=== PATIENT | female | born 1940 | race Caucasian/White ===

== ENCOUNTER 2020-02-08 16:55 | Emergency (ER) | payer MEDICARE, OTHER, SELFPAY ==
[2020-02-08 16:56] VITALS: BP 182/106; PULSE 101; RESP 16; TEMP 37.1; O2SAT 95; BMI 24.3
--- NOTE | 2020-02-08 17:26 | ED_ITS ---
HPI - Fall General: Chief Complaint: Fall Stated Complaint: fall Time Seen by Provider: 02/08/20 17:25 Source: patient Mode of arrival: ambulatory Limitations: no limitations History of Present Illness: HPI Narrative: 79-year-old female comes in today for injury secondary to losing her balance and landing on her left side. Patient states that she went to get up from the flower bed and as she was getting up she lost her balance and fell to the left side catching herself with outstretched arm. 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 Patient has swelling to the left wrist area. Patient has good range of motion of the elbow and shoulder but reports pain and discomfort with it. Patient appears well. Patient appears and mild pain. Review of Systems General: Reports: 10 or more systems reviewed and unremarkable except in HPI and below Musc: Reports: joint pain (left shoulder, wrist, elbow) Physical Exam Const: COMMON NORMALS: no acute distress and patient oriented x3 GENERAL APPEARANCE: cooperative HENMT: COMMON NORMALS: normocephalic and Normal external nose present HEAD & SCALP: normal to inspection and normocephalic NOSE: Normal external nose present Eye: GENERAL EYE: appearance normal, both eyes and all related structures Neck/C-Spine: COMMON NORMALS: full ROM Chest: COMMONS NORMALS: normal inspection of the chest Resp: COMMON NORMALS: normal respiratory effort EFFORT & INSPECTION: Yes able to speak in complete sentences Cardio: COMMON NORMALS: regular rate and regular rhythm RATE: regular rate RHYTHM: regular rhythm GI: COMMON NORMALS: non-tender Back/Pelvis: COMMON NORMALS: thoracic and lumbar spine normal to inspection (Patient presently is in a spinal brace.) Extremity: NARRATIVE EXTREMITY EXAM: Tenderness and swelling is noted to the left wrist. Prompt capillary refill is noted distally. Patient has some tenderness to the left elbow and left anterior shoulder. No obvious deformity or dislocation is noted to the shoulder or elbow. Neuro: COMMON NORMALS: patient oriented x3 and moves all extremities Psych: COMMON NORMALS: mental status grossly normal and cooperative Skin: COMMON NORMALS: no rashes or lesions noted GENERAL SKIN EXAM: no rashes or lesions noted Course Vital Signs: Vital signs: Vital Signs Temperature 98.7 F 02/08/20 16:56 Pulse Rate 101 H 02/08/20 16:56 Respiratory Rate 16 07/18/20 16:56 Blood Pressure 182/106 07/18/20 16:56 Pulse Oximetry 95 02/08/20 16:56 MDM - Fall MDM Narrative: Medical decision making narrative: Patient comes in today for injury suffered after losing her balance while trying to get up from the garden and falling onto her left outstretched arm and side. Exam notes some swelling and tenderness to the left distal forearm. Patient also had some tenderness to the elbow and shoulder without much abnormality. Differential diagnosis includes fracture, dislocation, contusion, sprain. X-ray of the distal left radius notes a nondisplaced fracture of the distal radius. Reviewed exam with patient recommended volar splint with follow-up with orthopedics. Patient and family both report understanding and agreed to plan. Discharge Plan Discharge Patient Disposition: Home, Self-Care Clinical Impression: Nondisplaced fracture of radius Qualifiers: Encounter type: initial encounter Radius location: head Fracture type: closed Laterality: left Qualified Code(s): S52.125A - Nondisplaced fracture of head of left radius, initial encounter for closed fracture Condition: Stable Discharge Orders: Discharge Order (Routine); Ordered 02/08/20 Ordered By: Henry Cantrell Referrals: Tyler Gonzales DO [Primary Care Provider] - Discharge Diet: Usual diet Discharge Activity: Increase activity as tolerated Patient Instructions: Splint Care (ED) Activity Restrictions/Additional Instructions: Keep splint clean and dry. Activity as tolerated. Case management will contact you Monday regarding follow-up appointment with orthopedist. Return to the ER for new concerns. Use acetaminophen as needed for pain. Use ice to help with swelling and pain. Coding Level of Care Code ED Miner Operator for Sumi Fwd Exam Comprehensive
--- NOTE | 2020-02-08 17:31 | XRR_ITS ---
PROCEDURE INFORMATION: Exam: XR Left Shoulder Exam date and time: 02/08/2020 5:33 PM Age: 79 years old Clinical indication: Injury or trauma; Fall; Initial encounter; Blunt trauma (contusions or hematomas; Shoulder; Left TECHNIQUE: Imaging protocol: XR Left shoulder. Views: 2 or more views. COMPARISON: No relevant prior studies available. FINDINGS: Bones/joints: There is osteopenia. There are moderate to severe degenerative changes of the glenohumeral joint and acromioclavicular joint. There is no acute fracture or dislocation. The acromioclavicular joint alignment is appropriate. The subacromial joint space is well-preserved. The glenohumeral joint is unremarkable. The visualized ribs are intact. Lungs: The visualized lung apex is clear. Soft tissues: No calcific tendinopathy. XR/XR shoulder LT min 2V* [id number] IMPRESSION: No acute bony abnormality.
--- NOTE | 2020-02-08 17:31 | XRR_ITS ---
PROCEDURE INFORMATION: Exam: XR Left Elbow Exam date and time: 02/08/2020 5:33 PM Age: 79 years old Clinical indication: Injury or trauma; Fall; Initial encounter; Blunt trauma (contusions or hematomas; Elbow; Left TECHNIQUE: Imaging protocol: XR Left elbow. Views: 3 or more views. COMPARISON: No relevant prior studies available. FINDINGS: Bones/joints: The bone density is appropriate. No periosteal reaction. No osteomyelitis. No acute fracture or dislocation. No bony destructive changes. Soft tissues: No foreign body. No gas in the soft tissues. XR/XR elbow LT min 3V* [id number] IMPRESSION: No acute bony abnormality.
--- NOTE | 2020-02-08 17:31 | XRR_ITS ---
PROCEDURE INFORMATION: Exam: XR Left Wrist Exam date and time: 02/08/2020 5:33 PM Age: 79 years old Clinical indication: Injury or trauma; Fall; Initial encounter; Blunt trauma (contusions or hematomas; Wrist; Left TECHNIQUE: Imaging protocol: XR Left wrist. Views: 3 or more views. COMPARISON: No relevant prior studies available. 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 There are moderate to severe degenerative changes in the wrist greatest at the scaphoid trapezium trapezoid joint. There is osteopenia. There is a nondisplaced fracture of the distal radius extending into the radiocarpal joint. No dislocation. No definite fracture of the ulna. Soft tissues: No foreign body. XR/XR wrist LT min 3V* [id number] IMPRESSION: There is a nondisplaced fracture of the distal radius extending into the radiocarpal joint.
--- NOTE | 2020-02-08 19:31 | PC.NURSE ---
SPLINT APPLIED ORDERED.
[2020-02-08 19:32] VITALS: BP 133/56; PULSE 82; RESP 17; O2SAT 98
--- NOTE | 2020-02-10 15:46 | DCPLANNER ---
hotel assistant general manager had message to schedule a follow up appointment for patient with ortho. Case manger called the ortho clinic, spoke with Pat, gave clinic patients information. hotel assistant general manager was told that patients information would be printed and reviewed. Clinic will call patient with appointment information.
--- NOTE | 2020-02-12 14:50 | DCPLANNER ---
Patient has a follow up appointment scheduled for , February 13, [address] at 9:[address] Rivera. Clinic will call patient with appointment information.
--- NOTE | 2020-02-13 13:14 | DCPLANNER ---
Patient did attend appointment scheduled for 02.13.20 with ortho.
== END 2020-02-08 19:37 | disposition home or self-care (01) ==
PROVIDERS: Emergency Provider Nurse Practitioner Family; PCP Internal Medicine
DX: S52.125A Nondisplaced fracture of head of left radius, initial encounter for closed fracture (principal); W01.0XXA Fall on same level from slipping, tripping and stumbling without subsequent striking against object, initial encounter
CPT/HCPCS: 12345; 29125; 73030; 73080; 73110; 99281; 99283

== ENCOUNTER 2020-02-13 10:59 | Outpatient (CLI) | payer MEDICARE, OTHER, SELFPAY | END 2020-02-13 11:00 | disposition home or self-care (01) | LOC: SPT 10:59 | PROVIDERS: PCP Internal Medicine; Visit Provider Orthopaedic Surgery | DX: Z47.89 Encounter for other orthopedic aftercare (principal); S52.125D Nondisplaced fracture of head of left radius, subsequent encounter for closed fracture with routine healing; X58.XXXD Exposure to other specified factors, subsequent encounter | CPT/HCPCS: 97760; L3982 ==

== ENCOUNTER → 2020-03-16 09:37 | Outpatient (BNVA) | payer MEDICARE, OTHER, SELFPAY | PROVIDERS: PCP Internal Medicine; Visit Provider Orthopaedic Surgery | DX: S52.502A Unspecified fracture of the lower end of left radius, initial encounter for closed fracture (principal) | CPT/HCPCS: 73110 ==

== ENCOUNTER → 2020-12-23 00:01 | Outpatient (BNVA) | payer MEDICARE, OTHER, SELFPAY | PROVIDERS: PCP Internal Medicine; Visit Provider Obstetrics & Gynecology | DX: N81.10 Cystocele, unspecified (principal) | CPT/HCPCS: 81003 ==

== ENCOUNTER → 2020-12-24 00:01 | Outpatient (BNVA) | payer MEDICARE, OTHER, SELFPAY | PROVIDERS: PCP Internal Medicine; Visit Provider Obstetrics & Gynecology | DX: N81.10 Cystocele, unspecified (principal) | CPT/HCPCS: 87086 ==

== ENCOUNTER 2022-09-14 13:40 | Emergency (ER) | payer MEDICARE, OTHER, SELFPAY ==
[2022-09-14 13:41] VITALS: BP 179/81; PULSE 83; RESP 14; TEMP 36.6; O2SAT 97
--- NOTE | 2022-09-14 14:04 | CT_ITS ---
WS: [id number] CT HEAD TECHNIQUE: Noncontrast CT of the head obtained from the skullbase to the vertex. CLINICAL INFORMATION: L sided weakness COMPARISON: None. DLP: 1020.[address] scans at [facility] use at least one of these dose optimization techniques: automated e xposure control; mA and/or kV adjustment per patient size (includes targeted exams where dose is matc hed to clinical indication); or iterative reconstruction. FINDINGS: No evidence of intracranial hemorrhage or mass effect. Ventricular system and basal cisterns are heredia nt. Mild small vessel changes with moderate parenchymal volume loss worse in the frontal lobes. No ex tra-axial fluid collections. No evidence of mass or mass effect. Vascular calcification Small amount of fluid and secretions in the maxillary sinuses compatible with sinusitis. A few secret ions in the ethmoid air cells mucosal thickening. Mastoid air cells well aerated. Normal posterior na sopharynx. IMPRESSION: 1. No evidence of intracranial hemorrhage or mass effect. 2. Mild small vessel changes with moderate parenchymal volume loss worse in the frontal lobes 3. Mild paranasal sinusitis 4. No acute intracranial findings.
[2022-09-14 14:16] VITALS: PULSE 68; RESP 27; O2SAT 98
--- NOTE | 2022-09-14 14:17 | W.ED.NEUROSD ---
HPI - Neuro Symptoms/Deficit General: Chief Complaint: Neuro Symptoms/Deficit Stated Complaint: numbness left side Time Seen by Provider: 09/14/22 14:03 Source: patient Mode of arrival: ambulatory History of Present Illness: 82-year-old female who presents to the emergency room with complaint of left-sided weakness. Its been intermittent for nearly a week seem to get a little more noticeable in the last few days particularly in the last 24 hours. She has no residual symptoms at this time. When she is examined pretty much entirely gone. She is not had any chest pain or tightness no difficulty speech or swallowing. She feels like she has tingling on the left side of her face neck and arm and somewhat the leg. She not had difficulty with dizziness speech, vision or swallowing. Onset (ago): minute(s) Location: left arm and left leg History of same: Yes Severity: mild Quality: weak Relieving factors: none Exacerbating factors: none Associated symptoms: Deny chest pain, cough, diaphoresis, fevers/chills, headache(s), malaise, nausea, seizures, short of breath, syncope, tingling, vertigo, vomiting or weakness Review of Systems Const: Denies: malaise or diaphoresis ENMT: Denies: throat pain, ear or mastoid pain, nasal discharge or nasal congestion Card: Denies: chest pain or syncope Resp: Denies: dyspnea, productive cough or non-productive cough GI: Denies: nausea or vomiting : Denies: flank pain, difficulty voiding, dysuria, urinary frequency or urinary urgency Skin/Breast: Denies: rash or pruritus Neuro: Denies: headache(s) or vertigo [facility] ED PFSH: Medical History Chronic back pain Takes pain medication managed by her primary care provider. 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 She follows with her primary care provider. GERD (gastroesophageal reflux disease) On omeprazole Lupus States that she was told she may have lupus and multiple other immune related problems likely Sjogren's and rheumatoid arthritis but is undergoing work-up right now. No pertinent past medical history Denies diabetes, asthma, hypertension, seizures, DVT/PE PCP: Dr. Gonzales Surgical History H/O cataract extraction Bilateral-2017 H/O sinus surgery 1979 History of lung surgery Has had removal of lower lung lobes--1 in 1963 and the other in 1971 History of vertebroplasty 2019 Family History Father Heart disease Mother Hypertension Brother Thyroid condition Sister Thyroid condition Denies family history of Colon cancer Ovarian cancer Diabetes Hyperlipidemia Breast cancer Uterine cancer Stroke Social History Smoking and tobacco status: never smoked Alcohol intake: never NIH stroke score NIHSS: Level Of Consciousness - 1a: 0 Level Of Consciousness Questions - 1b: Both Correct Level Of Consciousness Commands - 1c: Both Correct Best Gaze - 2: Normal Visual Amezcua - 3: No Visual Loss Facial Palsy - 4: Normal Motor Arm Right - 5: No Drift Motor Arm Left - 5: No Drift Motor Leg Right - 6: No Drift Motor Leg Left - 6: No Drift Limb Ataxia - 7: Absent Sensory - 8: Normal Best Language - 9: No Aphasia Dysarthia - 10: Normal Extinction And Inattention - 11: 0 Score: Total Score: 0 Physical Exam Const: GENERAL APPEARANCE: cooperative and comfortable ORIENTATION/CONSCIOUSNESS: Yes awake, Yes oriented to person, Yes oriented to place and Yes oriented to time HENMT: COMMON NORMALS: normocephalic, atraumatic and hearing grossly normal bilaterally HEAD & SCALP: normocephalic and atraumatic Resp: COMMON NORMALS: normal respiratory effort, No retractions, No use of accessory muscles and clear to auscultation bilaterally AUSCULTATION: clear to auscultation bilaterally Cardio: COMMON NORMALS: regular rate, regular rhythm and No murmurs present (Cardio) RATE: regular rate RHYTHM: regular rhythm GI: COMMON NORMALS: Soft to palpation and No hepatosplenomegaly present AUSCULTATION: Yes normoactive bowel sounds PALPATION: Yes Soft to palpation, No Tenderness to palpation present (GI), No Guarding due to palpation present (GI) and Yes No hepatosplenomegaly present Extremity: COMMON NORMALS: normal to inspection, capillary refill normal, no clubbing, cyanosis or edema, no calf tenderness and no pedal edema Neuro: SENSORIUM/ORIENTATION: Yes oriented to person, Yes oriented to place and Yes oriented to time Skin: COMMON NORMALS: no rashes or lesions noted GENERAL SKIN EXAM: no rashes or lesions noted Course Vital Signs: Vital signs: Vital Signs Temperature 97.9 F 09/14/22 13:41 Pulse Rate 75 09/14/22 14:30 Respiratory Rate 17 09/14/22 14:30 Blood Pressure 177/70 09/14/22 15:00 Pulse Oximetry 98 09/14/22 14:16 Oxygen Delivery Me thod 09/14/22 13:41 MDM - Neuro Symptoms/Deficit Medical Decision Making Patient complaining of weakness for an entire week. He do not have any objective findings on her exam and her CT is normal. At this point recommend starting on atorvastatin 40 mg daily and aspirin 81 mg daily follow-up with her primary care doctor set up outpatient MRI of the head. Medical Records I reviewed the patient's medical records. Lab Data I reviewed the patient's lab results. 09/14/22 14:40 09/14/22 14:40 Laboratory Results WBC 5.6 10^3/uL (4.0-10.0) 09/14/22 14:40 RBC 4.42 10^6/uL (4.1-5.3) 09/14/22 14:40 Hgb 12.3 g/dL (11.5-15.3) 09/14/22 14:40 Hct 39.3 % (37.0-47.0) 09/14/22 14:40 MCV 88.9 fl (81-99) 09/14/22 14:40 MCH 27.8 pg (28.0-34.0) L 09/14/22 14:40 MCHC 31.3 g/dL (30.0-36.0) 09/14/22 14:40 RDW 13.9 % (12.1-15.1) 09/14/22 14:40 Plt Count 199 10^3/cmm (130-400) 09/14/22 14:40 MPV 11.0 fL (7.4-10.4) H 09/14/22 14:40 Neut % (Auto) 62.6 % 09/14/22 14:40 Lymph % (Auto) 26.9 % 09/14/22 14:40 [place] % (Auto) 8.4 % 09/14/22 14:40 Eos % (Auto) 1.4 % 09/14/22 14:40 Baso % (Auto) 0.5 % 09/14/22 14:40 Neut # (Auto) 3.48 10^3/uL (1.8-7.7) 09/14/22 14:40 Lymph # (Auto) 1.5 10^3/uL (0.8-4.8) 09/14/22 14:40 [place] # (Auto) 0.5 10^3/uL (0.2-0.9) 09/14/22 14:40 Eos # (Auto) 0.1 10^3/uL (0.0-0.8) 09/14/22 14:40 Baso # (Auto) 0.0 10^3/uL (0.0-0.1) 09/14/22 14:40 Nucleated RBC % (auto) 0 % 09/14/22 14:40 Nucleated RBCs # 0.0 /100WBC 09/14/22 14:40 Sodium 139 mmol/L (136-145) 09/14/22 14:40 Potassium 4.2 mmol/L (3.5-5.1) 09/14/22 14:40 Chloride 102 mmol/L (98-107) 09/14/22 14:40 Carbon Dioxide 27 mmol/L (22-29) 09/14/22 14:40 Anion Gap 14.2 (5-19) 09/14/22 14:40 BUN 13 mg/dL (8-23) 09/14/22 14:40 Creatinine 0.6 mg/dL (0.5-0.9) 09/14/22 14:40 GFR Calculation Not Reportable 09/14/22 14:40 Glucose 85 mg/dL (65-115) 09/14/22 14:40 Calculated Osmolality 287 mOsm/kg (285-295) 09/14/22 14:40 Calcium 9.4 mg/dL (8.5-10.5) 09/14/22 14:40 Total Bilirubin 0.2 mg/dL (0.15-1.2) 09/14/22 14:40 AST 22 U/L (0-32) 09/14/22 14:40 ALT 10 U/L (0-33) 09/14/22 14:40 Alkaline Phosphatase 65 U/L (35-105) 09/14/22 14:40 Total Protein 7.0 g/dL (6.6-8.7) 09/14/22 14:40 Albumin 3.9 g/dL (3.5-5.2) 09/14/22 14:40 Globulin 3.1 g/dL (1.3-4.6) 09/14/22 14:40 Urine Color Light yellow (Yellow) 09/14/22 15:13 Urine Appearance Clear (CLEAR) 09/14/22 15:13 Urine pH 6.5 (5-7) 09/14/22 15:13 Ur Specific [place] 1.005 (1.005-1.030) 09/14/22 15:13 Urine Protein Neg (Negative) 09/14/22 15:13 Urine Glucose (UA) Norm (Normal) 09/14/22 15:13 Urine Ketones Negative (Negative) 09/14/22 15:13 Urine Blood Neg (Negative) 09/14/22 15:13 Urine Nitrate Negative (Negative) 09/14/22 15:13 Urine Bilirubin Neg (Negative) 09/14/22 15:13 Urine Urobilinogen Norm mg/dL (Negative) 09/14/22 15:13 Ur Leukocyte Esterase Trace (Negative) H 09/14/22 15:13 Urine RBC None /hpf (0-2) 09/14/22 15:13 Urine WBC 0-4 /hpf (0-5) H 09/14/22 15:13 Ur Squamous Epith Cells 0-4 /hpf (0-5) H 09/14/22 15:13 Amorphous Sediment Trace /hpf 09/14/22 15:13 Urine Bacteria Trace /hpf (NONE) 09/14/22 15:13 Discharge Plan Discharge Patient Disposition: Home Clinical Impression: Transient cerebral ischemia Condition: Stable Prescriptions: New atorvastatin 40 mg tablet 40 mg PO DAILY Qty: 30 0RF aspirin 81 mg tablet,delayed release (DR/EC) 81 mg PO DAILY Qty: 30 0RF No Action cholecalciferol (vitamin D3) 125 mcg (5,000 unit) capsule 125 mcg PO DAILY calcium carbonate [Calcium 500] 500 mg calcium (1,250 mg) tablet 500 mg PO DAILY pantoprazole [Protonix] 40 mg tablet,delayed release (DR/EC) 40 mg PO DAILY albuterol sulfate [ProAir HFA] 90 mcg/actuation HFA aerosol inhaler 2 puff inhalation Q6H PRN (Reason: Shortness Of Breath) baclofen 10 mg tablet 10 mg PO BID PRN (Reason: Pain) budesonide 0.5 mg/2 mL Suspension For Nebulization 0.5 mg INHALATION BID PRN (Reason: Shortness Of Breath) buprenorphine 7.5 mcg/hour patch weekly 7.5 mcg transdermal Q7D Rx Instructions: On Tuesdays Discharge Orders: Discharge ED (Routine); Ordered 09/14/22 Ordered By: Carrington Webster Referrals: Tyler Gonzales DO [Primary Care Provider] - Discharge Diet: Usual diet Discharge Activity: Increase activity as tolerated Patient Instructions: Opioid Safety, Pain Management Activity Restrictions/Additional Instructions: You were seen today for numbness tingling in the left arm and leg and face. Your CT of your head was negative and on stroke scoring your stroke score is at most 1. Recommend that you start atorvastatin 40 mg daily and baby aspirin daily. Case management will make arrangements for outpatient MRI of the head. Coding Level of Care Code ED Retail Manager In Training for Sumi Saenz
[2022-09-14 14:30] VITALS: BP 186/74; PULSE 75; RESP 17
[2022-09-14 15:00] VITALS: BP 177/70
[2022-09-14 15:08] LABS: Basophils % 0.5 %; Eosinophils # 0.1 10^3/uL (0.0-0.8); Eosinophils % 1.4 %; Hematocrit 39.3 % (37.0-47.0); Hemoglobin 12.3 g/dL (11.5-15.3); Lymphocytes # 1.5 10^3/uL (0.8-4.8); Lymphocytes % 26.9 %; Mean Corpuscular HGB Conc 31.3 g/dL (30.0-36.0); Mean Corpuscular Hemoglobin 27.8 pg (28.0-34.0); Mean Corpuscular Volume 88.9 fl (81-99); Monocytes # 0.5 10^3/uL (0.2-0.9); Monocytes % 8.4 %; Neutrophils # 3.48 10^3/uL (1.8-7.7); Neutrophils % 62.6 %; Nucleated Red Blood Cells % 0 %; Platelet Count 199 10^3/cmm (130-400); Red Blood Count 4.42 10^6/uL (4.1-5.3); Red Cell Distribution Width 13.9 % (12.1-15.1); White Blood Count 5.6 10^3/uL (4.0-10.0)
[2022-09-14 15:22] LABS: Alanine Aminotransferase 10 U/L (0-33); Albumin Level 3.9 g/dL (3.5-5.2); Alkaline Phosphatase 65 U/L (35-105); Anion Gap 14.2 (5-19); Aspartate Amino Transferase 22 U/L (0-32); Blood Urea Nitrogen 13 mg/dL (8-23); Calcium 9.4 mg/dL (8.5-10.5); Carbon Dioxide 27 mmol/L (22-29); Chloride 102 mmol/L (98-107); Globulin 3.1 g/dL (1.3-4.6); Glucose 85 mg/dL (65-115); Osmolality Calculated 287 mOsm/kg (285-295); Potassium 4.2 mmol/L (3.5-5.1); Sodium 139 mmol/L (136-145); Total Bilirubin 0.2 mg/dL (0.15-1.2)
[2022-09-14 15:30] VITALS: PULSE 64; RESP 16
[2022-09-14 15:56] LABS: Add Urine Microscopic? YES; Bilirubin Urine Neg (Negative); Blood Urine Neg (Negative); Glucose Urine UA Norm (Normal); Ketones Urine Negative (Negative); Leukocyte Esterase Urine Trace (Negative); Nitrate Urine Negative (Negative); Protein Urine Neg (Negative); Specific Gravity, Urine 1.005 (1.005-1.030); Urine Appearance Clear (CLEAR); Urine Color Light yellow (Yellow); Urobilinogen Urine Norm (Negative); pH Urine 6.5 (5-7)
[2022-09-14 15:57] LABS: Add Urine Culture? No; Amorphous Sediment Urine TRACE /hpf; Bacteria Urine TRACE /hpf; Squamous Epithelial Cell Urine 0-4 /hpf (0-5); WBC Urine 0-4 /hpf (0-5)
[2022-09-14 16:00] VITALS: BP 170/70; PULSE 65; RESP 17
--- NOTE | 2022-09-15 11:10 | DCPLANNER ---
Addendum entered by Glenis Celis 10/05/22 11:10: Patient had an MRI scheduled for 09.22.22 - patient did attend appointment. Original Note: mobility architect manager had message to schedule an outpatient MRI for patient. mobility architect manager faxed signed order to centralized scheduling, who will call patient with appointment information.
== END 2022-09-14 16:25 | disposition home or self-care (01) ==
PROVIDERS: Emergency Provider Family Medicine; PCP Internal Medicine
DX: G45.9 Transient cerebral ischemic attack, unspecified (principal); J44.9 Chronic obstructive pulmonary disease, unspecified
CPT/HCPCS: 70450; 80053; 81001; 85025; 99285

== ENCOUNTER 2022-09-20 15:23 | Oncology outpatient (recurring) (ONCR) | payer MEDICARE, OTHER, SELFPAY ==
[2022-09-20] MEDS: denosumab 60 mg SDV SUBCUT (15:39)
== END 2022-09-20 23:59 | disposition home or self-care (01) ==
LOC: ONCMED 15:24
PROVIDERS: PCP Internal Medicine; Visit Provider Electrodiagnostic Medicine
DX: M81.0 Age-related osteoporosis without current pathological fracture (principal)
CPT/HCPCS: 96372; J0897

== ENCOUNTER 2022-09-22 14:30 | Outpatient (CLI) | payer MEDICARE, OTHER, SELFPAY ==
--- NOTE | 2022-09-22 14:41 | MR_ITS ---
WS: [id number] MRI HEAD WITHOUT CONTRAST TECHNIQUE: Sagittal T1, T2 axial, T2 axial FLAIR, axial and coronal T1 images, axial susceptibility w eighted imaging, axial diffusion weighted images, and coronal T2 images were obtained. Patient refuse d gadolinium contrast CLINICAL INFORMATION: TIA COMPARISON: CT head September 14, 2022 FINDINGS: No evidence of restricted diffusion to suggest acute ischemia. Ventricular system and basal cisterns are patent. No hemosiderin on susceptibly weighted images. Normal optic chiasm and pituitary infundib ulum. Mild symmetric atrophy temporal lobes and hippocampal formations. Normal cavernous sinuses and Meckel's cave. Normal posterior fossa. Normal vascular flow voids at the skull base. Mild mucosal thickening in the paranasal sinuses. Mastoid air cells are well aerated. MR/MR head wo con* [id number] IMPRESSION: 1. No evidence of restricted diffusion to suggest acute ischemia. 2. Moderate small vessel changes with moderate parenchymal volume loss worse i n the frontal lobes. 3. Mild mucosal thickening in the paranasal sinuses. Mastoid air cells well ae rated. 4. No hemosiderin on susceptibly weighted images. 5. Mild symmetric atrophy temporal lobes and hippocampal formations.
== END 2022-09-22 14:31 | disposition home or self-care (01) ==
PROVIDERS: PCP Electrodiagnostic Medicine; Visit Provider Family Medicine
DX: G45.9 Transient cerebral ischemic attack, unspecified (principal); G31.89 Other specified degenerative diseases of nervous system
CPT/HCPCS: 70551

== ENCOUNTER 2023-05-04 14:53 | Oncology outpatient (recurring) (ONCR) | payer MEDICARE, OTHER, SELFPAY ==
[2023-05-04] MEDS: denosumab 60 mg SDV SUBCUT (15:10)
[2023-05-04 15:13] VITALS: BP 150/66; PULSE 76; RESP 16; TEMP 37; O2SAT 96
== END 2023-05-23 23:59 | disposition home or self-care (01) ==
LOC: ONCMED 14:55
PROVIDERS: PCP Electrodiagnostic Medicine; Visit Provider Electrodiagnostic Medicine
DX: M81.0 Age-related osteoporosis without current pathological fracture (principal)
CPT/HCPCS: 96372; J0897

== ENCOUNTER 2023-12-13 10:49 | Oncology outpatient (recurring) (ONCR) | payer MEDICARE, OTHER, SELFPAY ==
[2023-12-13 11:02] VITALS: BP 154/80; PULSE 65; RESP 16; TEMP 36.4; O2SAT 96
[2023-12-13] MEDS: denosumab 60 mg SDV SUBCUT (11:08)
== END 2023-12-22 23:59 | disposition home or self-care (01) ==
LOC: ONCMED 10:49
PROVIDERS: PCP Electrodiagnostic Medicine; Visit Provider Electrodiagnostic Medicine
DX: M81.0 Age-related osteoporosis without current pathological fracture (principal)
CPT/HCPCS: 96372; J0897

== ENCOUNTER 2024-12-24 13:56 | Oncology outpatient (recurring) (ONCR) | payer MEDICARE, OTHER, SELFPAY ==
[2024-12-24] MEDS: denosumab 60 mg SDV SUBCUT (14:25)
== END 2025-01-20 23:59 | disposition home or self-care (01) ==
PROVIDERS: PCP Electrodiagnostic Medicine; Visit Provider Electrodiagnostic Medicine
DX: M81.0 Age-related osteoporosis without current pathological fracture (principal); Z79.899 Other long term (current) drug therapy
CPT/HCPCS: 96372; J0897

== ENCOUNTER → 2025-03-11 13:33 | Outpatient (BNVA) | payer MEDICARE, OTHER, SELFPAY | PROVIDERS: PCP Electrodiagnostic Medicine; Visit Provider Podiatrist Foot & Ankle Surgery | DX: M21.611 Bunion of right foot (principal); M21.612 Bunion of left foot; M20.41 Other hammer toe(s) (acquired), right foot; M20.42 Other hammer toe(s) (acquired), left foot | CPT/HCPCS: 99203 ==

== ENCOUNTER 2025-06-23 09:45 | Oncology outpatient (recurring) (ONCR) | payer MEDICARE, OTHER, SELFPAY ==
[2025-06-23] MEDS: denosumab 60 mg SDV (Infusion Clinic Only) SUBCUT (10:22)
== END 2025-07-23 23:59 | disposition home or self-care (01) ==
PROVIDERS: PCP Electrodiagnostic Medicine; Visit Provider Electrodiagnostic Medicine
DX: M81.0 Age-related osteoporosis without current pathological fracture (principal); Z79.899 Other long term (current) drug therapy
CPT/HCPCS: 96372; J0897